=== PATIENT | male | born 1940 | race Caucasian/White ===

== ENCOUNTER 2021-04-26 06:02 | Day surgery (SDC) | payer OTHER, MEDICARE, BC ==
[2021-04-26] MEDS ORDERED: Midazolam 1 MG/ML 2 ML SDV IV ONE ×2 (06:03→07:09)
[2021-04-26] MEDS ORDERED: fentaNYL 100 MCG/2 ML SDV IV ONE ×3 (06:03→07:11)
[2021-04-26] MEDS ORDERED: Midazolam 1 MG/ML 2 ML SDV ONE (06:24)
[2021-04-26] MEDS ORDERED: fentaNYL 100 MCG/2 ML SDV ONE (06:25)
[2021-04-26] MEDS ORDERED: Dextrose 5%-0.45% NaCl 1,000 ML IV SCH (06:40)
--- NOTE | 2021-04-26 08:16 | OR ---
DATE: 04/26/2021 PROCEDURE: Esophagogastroduodenoscopy and multiple pinch biopsies. INSTRUMENT USED: GIF-HQ190 Olympus video panendoscope. PREMEDICATIONS: No oral or topical anesthesia used. Fentanyl 100 mcg intravenous, Versed 1 mg intravenous, nasal O2 cannula. The procedure was done under pulse oximetry, BP recording, and cardiac catheterization technician. INDICATION: The patient with unexplained iron-deficiency anemia. Esophagogastroduodenoscopy is performed for detection of any active erosive lesions, Khan esophagus and/or malignancy also under consideration, H pylori status to be determined, small bowel biopsies to be obtained for celiac disease if indicated, endoscopic hemostasis therapy if needed. PROCEDURE IN DETAIL: The scope was passed with ease. Adequate visualization of the esophagus was made from proximal to distal areas. No upper esophageal lesions identified. No distal esophageal stricture. No uphill or downhill esophageal varices. No Kizzy-Pedraza tear. No evidence of erosive esophagitis by Burnett criteria. No esophageal polyp or tumor mass identified. Z-line was seen at around 40 cm distal to the oral verge. No proximal gastric varices noted. Gastric fundus examination by retroflexion showed numerous benign- appearing polyps. No gastric ulcer, malignant mass, or vascular ectasia identified. Some patchy erythema noted in the gastric antrum. Duodenal bulb showed no ulcer. Visualized second part of the duodenum was unremarkable. Multiple pinch biopsies, 4 in number, were taken from different areas of the second part of the duodenum and tissues were also obtained from the duodenal bulb at 9 and 12 o'clock positions and sent for any histopathologic evidence of celiac disease. Multiple pinch biopsies were also obtained from the gastric antrum and proximal body and sent for PyloriTek test for H pylori and histopathology. No bleeding was noted from any of the visualized areas at the completion of examination. Photographs were taken of the duodenal bulb, gastric antrum, fundus, and distal esophagus. IMPRESSION: Gastric fundus polyps. The patient tolerated the procedure well. [facility] /[id number]
--- NOTE | 2021-04-26 09:10 | LETTER ---
04/26/2021 RE: CARLEE GUERRERO : 1940 Basim Crockett MD [facility] [address] [place] [address] Crockett: Mr. Carlee Guerrero had esophagogastroduodenoscopy done this morning, and he tolerated the procedure well. I herewith send a copy of the endoscopy note and photographs for your review. Thank you. Sincerely, [facility] /[id number]
[2021-04-26 10:00] VITALS: BP 121/70; PULSE 65
== END 2021-04-26 09:26 | disposition home or self-care (01) ==
LOC: DL.ENDO 06:02
PROVIDERS: ATTEND Internal Medicine Gastroenterology
DX: K29.40 Chronic atrophic gastritis without bleeding (principal); D50.9 Iron deficiency anemia, unspecified; K31.7 Polyp of stomach and duodenum; K31.89 Other diseases of stomach and duodenum; I10 Essential (primary) hypertension; F17.210 Nicotine dependence, cigarettes, uncomplicated; Z98.890 Other specified postprocedural states
CPT/HCPCS: 87077; J2250; J3010; J7042

== ENCOUNTER 2021-05-10 06:55 | Day surgery (SDC) | payer OTHER, MEDICARE, BC ==
[~2021-05-10 06:55] MED LIST: Dextrose 5%-0.45% NaCl 1,000 ML IV SCH; Midazolam 1 MG/ML 2 ML SDV ONE; Sodium Chloride 0.9% 10 ML Syringe FLUSH PRN; fentaNYL 100 MCG/2 ML SDV ONE
[2021-05-10] MEDS ORDERED: fentaNYL 100 MCG/2 ML SDV IV ONE ×3 (06:56→08:00)
[2021-05-10] MEDS ORDERED: Midazolam 1 MG/ML 2 ML SDV IV ONE ×6 (06:56→08:20)
[2021-05-10 10:18] VITALS: BP 137/54; PULSE 75
--- NOTE | 2021-05-10 12:56 | OR ---
DATE: 05/10/2021 PROCEDURE: Total colonoscopy. INSTRUMENT USED: PCF-H190DL Olympus video colonoscope. PREMEDICATIONS: Fentanyl 100 mcg intravenous, Versed 4 mg intravenous, nasal O2 cannula. The procedure was done under pulse oximetry, BP recording, and radiographer cardiac catheterization. INDICATION: The patient with unexplained iron-deficiency anemia. Colonoscopic examination is done for detection of any polypoid lesions and removal, endoscopic hemostasis therapy if needed. DESCRIPTION OF PROCEDURE: Initial rectal exam was unremarkable. Rigid anoscopy was normal. The colonoscope was passed with ease. Few scattered diverticula were noted in the distal left colon. The scope was passed with ease up to the ileocecal area. Photographs were taken of the normal-appearing cecum identified by double-bulged ileocecal folds. No bleeding was noted from any of the visualized areas at the commencement of the examination. There was large amount of fecal material that had to be aspirated. The bowel preparation was found to be adequate, [place] scale 2 in left and right colon, 3 in transverse colon, total score 7. No stricture, no vascular ectasia, no large isolated ulcerations seen. No evidence of diffuse inflammatory bowel disease in the form of friability, contact bleeding, or ulcerations. No polyp or tumor mass identified. Probing the proximal sides of folds and flexures using adequate distention and clearing up the stool material, withdrawal of the scope was made. Cecum to rectum time over 6 minutes. No bleeding was noted from any of the visualized areas at the completion of the examination. IMPRESSION: Diverticulosis. The patient tolerated the procedure well. [facility] /[id number]
--- NOTE | 2021-05-11 08:43 | LETTER ---
05/10/2021 RE: CARLEE GUERRERO : 1940 Basim Crockett MD [facility] [address] [place] [address] Crockett: Mr. Carlee Guerrero had colonoscopic examination done this morning and he tolerated the procedure well. I herewith send a copy of the endoscopy note and photographs for your review. Thank you. Sincerely, [facility] /[id number]
== END 2021-05-10 10:30 | disposition home or self-care (01) ==
LOC: DL.ENDO 06:55
PROVIDERS: ATTEND Internal Medicine Gastroenterology
DX: K57.30 Diverticulosis of large intestine without perforation or abscess without bleeding (principal); D50.9 Iron deficiency anemia, unspecified; I10 Essential (primary) hypertension; F17.210 Nicotine dependence, cigarettes, uncomplicated; Z98.890 Other specified postprocedural states; Z86.010 Personal history of colon polyps
CPT/HCPCS: J2250; J3010; J7042

== ENCOUNTER 2024-05-25 09:13 | Day surgery (SDC) | payer BC, MEDICARE, OTHER ==
[2024-05-25] MEDS ORDERED: Acetaminophen 325 MG Tab PO PRN (09:45)
[2024-05-25] MEDS ORDERED: Acetaminophen/Codeine 300-30 MG Tab PO PRN (09:45)
[2024-05-25] MEDS ORDERED: Ondansetron 4 MG/2 ML SDV IVPUSH PRN (09:45)
[2024-05-25] MEDS: Sodium Chloride 0.9% 10 ML Syringe FLUSH PRN (10:03)
[2024-05-25] MEDS: Moxifloxacin 0.5% Ophth Soln 3 ML Bottle EYELF ONE (10:05)
[2024-05-25] MEDS: Proparacaine 0.5% Ophth Soln 15 ML Bottle EYELF ONE ×2 (10:05→10:28)
[2024-05-25] MEDS: Povidone-Iodine 5% Sterile Ophth Soln 30 ML Bottle EYELF ONE ×2 (10:06→10:28)
[2024-05-25] MEDS: Tropicamide 1% Ophth Soln 15 ML Bottle EYELF ONE (10:09)
[2024-05-25] MEDS: Timolol Maleate 0.5% Ophth Soln 5 ML Bottle EYELF ONE (10:10)
[2024-05-25] MEDS: Cataract Ophth Solution EYELF ONE (10:10)
[2024-05-25] MEDS: Phenylephrine 10% Ophth Soln 5 ML Bot EYELF ONE (10:10)
[2024-05-25] MEDS: Diclofenac Sodium 0.1% Ophth Soln 5 ML Bottle EYELF ONE (10:29)
[2024-05-25] MEDS: Dexamethasone/Neomycin/Polymyxin B Ophth Oint 3.5 GM Tube EYELF ONE (10:29)
[2024-05-25] MEDS: Apraclonidine 0.5% Ophth Soln 5 ML Bot EYELF ONE (10:29)
[2024-05-25] MEDS: Lidocaine 1% 30 ML SDV ONE (10:34)
[2024-05-25] MEDS: Vancomycin 500 MG SDV EYELF ONE (10:35)
[2024-05-25 11:10] VITALS: PULSE 68
[2024-05-25 12:07] VITALS: BP 111/61
== END 2024-05-25 11:25 | disposition home or self-care (01) ==
LOC: DL.SDS 09:13
PROVIDERS: ATTEND Ophthalmology
DX: E11.36 Type 2 diabetes mellitus with diabetic cataract (principal); H25.812 Combined forms of age-related cataract, left eye; E66.9 Obesity, unspecified; E78.5 Hyperlipidemia, unspecified; I10 Essential (primary) hypertension; Z79.899 Other long term (current) drug therapy
CPT/HCPCS: 66984; A9270; J3370; V2787; J3490